=== PATIENT | male | born 1950 | race Caucasian/White ===

== ENCOUNTER 2020-01-20 09:48 | Inpatient (IN) | payer MEDICARE ==
[~2020-01-20] VITALS: Ht 162.6 cm; Wt 91.2 kg
[2020-01-20] MEDS ORDERED: SODIUM CHLORIDE 0.9% 1000ML 1,000 ML IV STA (09:49)
[2020-01-20] MEDS ORDERED: ONDANSETRON HCL INJ 2MG/ML 2ML 2 MG/ML VIAL IV STA (09:49)
--- NOTE | 2020-01-20 09:58 | NUR ---
LABS OBTAINED. DUAL VERIFICATION WITH TWO RN'S WHEN TYPE AND SCREEN DRAWN BY THIS CLINICIAN. WITNESSED BY RESTAURANT LINE COOK, MELANIA. BLOOD SENT TO LAB. WILL AWAIT RESULTS AND FURTHER ORDERS. PATIENT VERBALIZES NO PAIN OR DISTRESS. WILL CONTINUE TO MONITOR.
[2020-01-20 10:16] LABS: BASOPHILS # (AUTO) 0.1 (0.0-0.1); BASOPHILS % 0.8 % (0.0-1.0); EOSINOPHILS # (AUTO) 0.1 (0.0-0.4); EOSINOPHILS % 1.8 % (0.0-6.0); HEMATOCRIT 18.7 % (38.2-49.6); LYMPHOCYTES # (AUTO) 1.4 (1.0-3.2); LYMPHOCYTES % 23.7 % (18.0-39.1); MEAN CORPUSCULAR HEMOGLOBIN 27.6 pg (28-32); MEAN CORPUSCULAR HGB CONC 29.9 g/dL (31-35); MEAN CORPUSCULAR VOLUME 92.1 fL (81-99); MONOCYTES # (AUTO) 0.8 (0.2-0.8); MONOCYTES % 13.6 % (4.4-11.3); NEUTROPHILS # (AUTO) 3.6 (2.1-6.9); NEUTROPHILS % 59.8 % (38.7-80.0); PLATELET COUNT 151 x10e3/uL (140-360); RED BLOOD COUNT 2.03 x10e6/uL (4.3-5.7); RED CELL DISTRIBUTION WIDTH 21.2 % (11.7-14.4)
[2020-01-20 10:24] LABS: HEMOGLOBIN 5.6 g/dL (14.0-18.0)
--- NOTE | 2020-01-20 10:24 | NUR ---
RECEIVED CRITICAL LAB VALUE OF HGB 5.6 AT THIS TIME. NOTIFIED EVELYNE [place].
[2020-01-20 10:27] LABS: INR 1.47; PROTHROMBIN TIME 18.8 seconds (11.9-14.5)
[2020-01-20] MEDS ORDERED: SODIUM CHLORIDE 0.9% 250ML 250 ML IV ONE (10:30)
[2020-01-20 10:35] LABS: ALANINE AMINOTRANSFERASE 45 IU/L (0-55); ALBUMIN 3.1 g/dL (3.5-5.0); ALBUMIN/GLOBULIN RATIO 0.9 (0.8-2.0); ALKALINE PHOSPHATASE 118 IU/L (40-150); ANION GAP 10.8 mmol/L (8-16); BLOOD UREA NITROGEN 10 mg/dL (7-26); BUN/CREATININE RATIO 11 (6-25); CALCIUM 8.6 mg/dL (8.4-10.2); CARBON DIOXIDE 28 mmol/L (22-29); CHLORIDE 103 mmol/L (98-107); CREATINE KINASE 57 IU/L (30-200); CREATININE, SERUM 0.93 mg/dL (0.72-1.25); EST GLOMERULAR FILTRATION RATE > 60 ML/MIN (60-); GLUCOSE 188 mg/dL (74-118); LIPASE 60 U/L (8-78); POTASSIUM 3.8 mmol/L (3.5-5.1); SODIUM 138 mmol/L (136-145)
--- NOTE | 2020-01-20 11:38 | Diagnostic Imaging Report ---
EXAMINATION: CT of the abdomen and pelvis with contrast. TECHNIQUE: Spiral CT images of the abdomen and pelvis were performed from the lung bases to the lesser trochanters after the intravenous administration of 100 cc of Isovue 370. Coronal and sagittal reformatted images were obtained. COMPARISON: None. CLINICAL HISTORY:Abdominal distention, black stool, anemia DISCUSSION: ABDOMEN/PELVIS: LOWER THORAX:Subsegmental atelectasis in the lower lobes right greater than left. HEPATOBILIARY: Subcentimeter hypoattenuating lesion in segment 2 is too small to further characterize but likely to represent a small cyst. No additional focal hepatic lesion. Nodular hepatic contour with relative hypertrophy of the left lobe compatible with cirrhosis. The gallbladder is collapsed with multiple radiopaque calculi. SPLEEN: Borderline splenomegaly (13 cm in craniocaudal span). PANCREAS: No focal masses or ductal dilatation. ADRENALS: No adrenal nodules. KIDNEYS/URETERS: No hydronephrosis, calculi, or solid or cystic mass lesions. PELVIC ORGANS/BLADDER: The urinary bladder is unremarkable. PERITONEUM/RETROPERITONEUM: Small volume perihepatic and perisplenic ascites, tracking along the paracolic gutters and into the pelvis, average internal attenuation 0-5 Hounsfield units. No pneumoperitoneum. LYMPH NODES: No pelvic sidewall, retroperitoneal, or mesenteric lymphadenopathy. VESSELS: Atherosclerotic calcification of the abdominal aorta and major branch vessels without aneurysmal dilatation or significant stenosis. Hepatic arterial anatomy appears conventional. Portal vein, splenic vein, and central superior mesenteric vein are patent. GI TRACT: Multiple descending and sigmoid colon diverticula without wall thickening or adjacent inflammatory change. Normal appendix. No small bowel dilatation to suggest obstruction BONES AND SOFT TISSUE: No acute osseous abnormalities. Degenerative disc changes and facet arthropathy of the lumbar spine. Partially visualized median sternotomy wires. Small fat-containing left inguinal hernia. IMPRESSION: No acute intra-abdominal or pelvic CT abnormalities. Cirrhosis with portal hypertension evidenced by ascites and borderline splenomegaly. No sizable gastric or esophageal varices. Cholelithiasis. Large bowel diverticulosis without evidence of diverticulitis. Atherosclerotic vascular disease. Signed by: Dr. Sincere Noguera M.D. on 01/20/2020 11:34 AM
--- NOTE | 2020-01-20 11:41 | Diagnostic Imaging Report ---
EXAMINATION: PA and lateral views of the chest. COMPARISON: None CLINICAL HISTORY: Anemia DISCUSSION: The lungs are well-inflated. Minimal linear opacity in the lung bases compatible with subsegmental atelectasis. No consolidation, pleural effusion, or pneumothorax. Postsurgical changes of the mediastinum with multiple intact median sternotomy wires. Normal heart size without overt pulmonary edema. No acute osseous abnormalities. Posttraumatic changes of the distal right clavicle. IMPRESSION: Subsegmental atelectasis in the lung bases. Otherwise no acute cardiopulmonary abnormality. Signed by: Dr. Sincere Noguera M.D. on 01/20/2020 11:38 AM
[2020-01-20] MEDS ORDERED: SODIUM CHLORIDE 0.9% 50ML 50 ML ONE (12:44)
[2020-01-20] MEDS ORDERED: IOPAMIDOL 370 MG/ML 200 ML INFUS..BTL INJ ONE (12:44)
[2020-01-20] MEDS: ACETAMINOPHEN 325 MG TAB PO PRN ×2 (13:10→21:43)
[2020-01-20] MEDS ORDERED: ACETAMINOPHEN 325 MG TAB ONE (13:22)
[2020-01-20 14:22] VITALS: BP 156/89
[2020-01-20] MEDS ORDERED: PROPOFOL IV EMULSION 10 MG/ML 20 ML VIAL ONE (14:35)
--- NOTE | 2020-01-20 16:10 | NUR ---
bp is 85/52 automatic and 84/[address] Maza twice (@[phone] and [phone]) and sent message (@[phone]). still waiting for call back.
[2020-01-20 17:23] VITALS: BP 96/60
[2020-01-20] MEDS ORDERED: CITRATE OF MAGNESIA 300ML BOTTLE PO ONE ×2 (18:00→22:00)
[2020-01-20] MEDS ORDERED: BISACODYL 5 MG TAB EC PO ONE ×3 (19:00→23:15)
--- NOTE | 2020-01-20 19:16 | NUR ---
WALKING ROUNDS PERFORMED, RECEIVED PT LAYING SEMI FOWLERS IN BED, AAOX3, RR EVEN AND NON-LABORED, ON ROOM AIR. NO S/SX OF DISTRESS NOTED. PT RECEIVING BLOOD TRANSFUSION AT 125ML/HR. LEFT PT LAYING SEMI FOWLERS IN BED, BED IN LOW LOCKED POSITION, SIDE RAILS UPX2, CALL LIGHT AND PHONE WITHIN REACH.
[2020-01-20 20:00] VITALS: BP 98/61
[2020-01-20 21:26] VITALS: BP 98/61
[2020-01-20] MEDS ORDERED: ONDANSETRON HCL INJ 2MG/ML 2ML 2 MG/ML VIAL IV PRN (22:00)
[2020-01-20] MEDS ORDERED: LACTULOSE SYRUP 20 GM/30 ML UDC PO PRN (22:00)
[2020-01-20] MEDS ORDERED: ZOLPIDEM TARTRATE 5 MG TAB PO PRN ×2 (22:00)
[2020-01-20] MEDS ORDERED: DOCUSATE SODIUM 100 MG CAP PO PRN (22:00)
[2020-01-20 22:18] LABS: CHOL/HDL RATIO 2.9 (3.9-4.7)
[2020-01-21] VITALS (9 sets, daily range): BP systolic 93–139; BP diastolic 55–72
[2020-01-21] MEDS ORDERED: PHYTONADIONE 10 MG/ML AMP SQ ONE (00:30)
[2020-01-21] MEDS ORDERED: SODIUM CHLORIDE 0.9% 100 ML ONE (00:42)
[2020-01-21] MEDS ORDERED: FOLIC ACID 5 MG/ML VIAL IV ONE (00:53)
[2020-01-21] MEDS ORDERED: THIAMINE HCL INJ 100 MG/ML 2ML VIAL IV ONE (00:53)
[2020-01-21] MEDS ORDERED: MULTIVITAMINS IV ONE (00:55)
[2020-01-21] MEDS ORDERED: SODIUM CHLORIDE IV ONE (00:55)
[2020-01-21] MEDS ORDERED: FOLIC ACID 5 MG/ML VIAL ONE (01:24)
[2020-01-21] MEDS ORDERED: THIAMINE HCL INJ 100 MG/ML 2ML VIAL ONE (01:24)
[2020-01-21] MEDS ORDERED: MULTIVITAMINS INJECTION ONE (01:24)
[2020-01-21] MEDS ORDERED: SODIUM CHLORIDE 0.9% 1000ML 1,000 ML ONE (01:27)
[2020-01-21] MEDS: MULTIVITAMINS- 12 INJECTION 10 ML, FOLIC ACID MDV 5 MG, THIAMINE HCL INJ 100 MG in SODI... IV SCH ×2 (02:10→21:16)
[2020-01-21 02:55] LABS: CREATINE KINASE MB 1.4 ng/mL (0-5.0)
[2020-01-21 05:49] LABS: BASOPHILS % 0.3 % (0.0-1.0); EOSINOPHILS % 0.3 % (0.0-6.0); HEMATOCRIT 23.4 % (38.2-49.6); HEMOGLOBIN 7.2 g/dL (14.0-18.0); LYMPHOCYTES # (AUTO) 1.2 (1.0-3.2); LYMPHOCYTES % 14.9 % (18.0-39.1); MEAN CORPUSCULAR HEMOGLOBIN 27.9 pg (28-32); MEAN CORPUSCULAR HGB CONC 30.8 g/dL (31-35); MEAN CORPUSCULAR VOLUME 90.7 fL (81-99); MONOCYTES # (AUTO) 1.1 (0.2-0.8); MONOCYTES % 13.6 % (4.4-11.3); NEUTROPHILS # (AUTO) 5.5 (2.1-6.9); NEUTROPHILS % 70.6 % (38.7-80.0); PLATELET COUNT 115 x10e3/uL (140-360); RED BLOOD COUNT 2.58 x10e6/uL (4.3-5.7); RED CELL DISTRIBUTION WIDTH 20.1 % (11.7-14.4)
[2020-01-21 06:11] LABS: ALANINE AMINOTRANSFERASE 41 IU/L (0-55); ALBUMIN/GLOBULIN RATIO 0.9 (0.8-2.0); ALKALINE PHOSPHATASE 94 IU/L (40-150); BLOOD UREA NITROGEN 12 mg/dL (7-26); BUN/CREATININE RATIO 11 (6-25); CALCIUM 8.5 mg/dL (8.4-10.2); CARBON DIOXIDE 22 mmol/L (22-29); CHLORIDE 107 mmol/L (98-107); CREATININE, SERUM 1.09 mg/dL (0.72-1.25); EST GLOMERULAR FILTRATION RATE > 60 ML/MIN (60-); GLUCOSE 125 mg/dL (74-118); SODIUM 136 mmol/L (136-145)
[2020-01-21 06:15] LABS: CREATINE KINASE MB 1.4 ng/mL (0-5.0)
--- NOTE | 2020-01-21 06:17 | NUR ---
H&P cc: anemia HPI: 69yoM, PCP , developed ankle swelling, went to PCP, labs done showed low Hb. sent to hospital. Pt denies melena/hematochezia/blood loss. PMH: DM2, HTN, hx cigs, CAD s/p CABG x1 in 2007 PSxh; CABGx1 in 2007, right knee Allergies; see emr FH/SH; ; quit cigs meds see emr ROS: no f/c/s/N/VD/MATAMOROS/cp/sob/skin rash/back pain/vision changes/focal limb weakness v/s; revd PE nad anicteric ns1s2; 3/6 murmur soft nt nd 1+ leg edema skin dry flat affect a&ox3; faustin labs/meds revd A/P: Severe anemia- s/p transfusion; GI consult; 2 units PRBC Hypotension- bolused fluids; related to anemia Cirrhosis- f/u hepatitis panel Thrombocytopenia- due to cirrhosis Hyperglycemia- hab1c/lipids Obesity- hba1c/lipids BMI 34.5- as above Cholelithiasis- asymptomatic Diverticulosis- will need high fiber diet Peripheral edema- echo 3/6 systolic murmur- echo CAD with hx CABG- echo Prop; scd; PPI DIspo: f/u GI; Sami Maza MD, PhD.
[2020-01-21] MEDS: PANTOPRAZOLE 40 MG 10ML VIAL IV SCH ×2 (06:43→17:37)
[2020-01-21] MEDS ORDERED: SODIUM CHLORIDE 0.9% IV ONE (08:00)
[2020-01-21] MEDS ORDERED: PHYTONADIONE 10MG/ML 20 MG in SODIUM CHLORIDE 0.9% 100 ML 100 ML IV ONE (08:00)
[2020-01-21] MEDS ORDERED: PHYTONADIONE IV ONE (08:00)
--- NOTE | 2020-01-21 08:05 | NUR ---
OR nurse at bedside to take pt for EGD/colonoscopy
[2020-01-21] MEDS ORDERED: PHYTONADIONE 10MG/ML 2 ML ONE (09:06)
--- NOTE | 2020-01-21 10:59 | Operative Report ---
DATE OF PROCEDURE: 01/21/2020 SURGEON: Avel Murillo MD PROCEDURES PERFORMED: Esophagogastroduodenoscopy with banding of esophageal varices and biopsies, and colonoscopy with polypectomy. INDICATIONS FOR ESOPHAGOGASTRODUODENOSCOPY: History of hematemesis. INDICATIONS FOR COLONOSCOPY: Anemia. MEDICATIONS: The patient was done under MAC. Please see anesthesiologist's note. PROCEDURE IN DETAIL: With the patient in the left lateral decubitus position, flexible fiberoptic Olympus gastroscope was introduced into the esophagus under direct visualization without any difficulty. Grade 2-3 esophageal varices were noted without active bleeding or stigmata of recent hemorrhage. The scope was then advanced with ease into the stomach. Mucosa overlying the antrum and the body revealed some patchy erythema and low-grade edema. There was some minimal portal hypertensive gastropathy noted. The pylorus was of normal contour and shape. It was intubated with ease and the scope was advanced all the way to the second portion of the duodenum. Some focal nodularity was noted in the proximal second portion. Biopsies were obtained. The duodenal bulb appeared to be within normal limits. The scope was then withdrawn back into the stomach and retroflexed, and some small cardiac varices were noted. The scope was then straightened out and it was subsequently withdrawn. The scope was then fitted for banding, was reintroduced into the stomach, and 3 bands were applied to 2 columns of varices with excellent hemostasis. The scope was subsequently withdrawn. The patient tolerated the procedure well. IMPRESSION: 1. Grade 2-3 esophageal varices, 3 bands applied to 2 columns of varices. 2. Small cardiac varices. 3. Gastritis, biopsied, biopsies sent to stain for H pylori. Mild portal hypertensive gastropathy changes. 4. Focal nodularity, proximal second portion of duodenum, biopsied. PLAN: Follow up histology. Initiate Protonix 40 mg one p.o. q.a.m. before meals, Inderal 10 mg one p.o. b.i.d. The patient was then turned around. After adequate lubrication of the anal canal, a flexible fiberoptic Olympus colonoscope was inserted into the rectum with ease and advanced all the way to the cecum. An approximately 5 mm sessile polyp was removed per snare electrocautery from the cecum and site was hemoclipped x1. The ascending, transverse, descending, and sigmoid was grossly unremarkable other than for some mild diverticular disease in the left colon. A minute polyp was hot biopsied from the rectum. The scope was then retroflexed into the distal rectum and small internal hemorrhoids were noted, none of which was actively bleeding. The scope was then straightened out and it was subsequently withdrawn. The patient tolerated the procedure well. IMPRESSION: 1. Cecal polyp, hot snared and polypectomy site hemoclipped x1. 2. Diverticulosis. 3. Rectal polyp, hot biopsied. 4. Internal hemorrhoids, none actively bleeding. PLAN: Follow up histology. Initiate high-fiber, low-fat diet. The patient might benefit from a followup colonoscopy in 5 years. Avel Murillo MD [facility] [place] /[id number] cc: Sami Maza MD
[2020-01-21 12:03] LABS: CREATINE KINASE MB 1.2 ng/mL (0-5.0)
[2020-01-21] MEDS ORDERED: GLUCAGON FOR INJ 1 MG VIAL ONE (15:12)
[2020-01-21] MEDS ORDERED: PROPOFOL IV EMULSION 10 MG/ML 50 ML VIAL ONE (15:12)
[2020-01-21] MEDS ORDERED: MIDAZOLAM HCL 2 MG/2 ML VIAL ONE (15:20)
[2020-01-21] MEDS ORDERED: FENTANYL CITRATE/PF 100MCG/2 ML INJ ONE (15:20)
[2020-01-21] MEDS: PROPRANOLOL HCL 10 MG TAB PO SCH (17:37)
[2020-01-21] MEDS ORDERED: FUROSEMIDE 40 MG TAB PO ONE (23:15)
[2020-01-22] VITALS (12 sets, daily range): BP systolic 104–137; BP diastolic 59–75
--- NOTE | 2020-01-22 01:37 | NUR ---
SBAR RECEIVED FROM JOHNATHON Finley, PATIENT AWAKE ALERT, DENIES PAIN OR DISCOMFORT, WILL CONTINUE CARE, CONTINUE TO MONITOR
[2020-01-22 07:55] LABS: HEMATOCRIT 23.3 % (38.2-49.6); HEMOGLOBIN 7.1 g/dL (14.0-18.0)
--- NOTE | 2020-01-22 08:13 | NUR ---
Paged and notified of Hgb 7.1
--- NOTE | 2020-01-22 08:45 | NUR ---
Patient states "My fluids were stopped yesterday by due to leg swelling." Called Dr.Haddad Brothers for clarification of orders
[2020-01-22] MEDS: PROPRANOLOL HCL 10 MG TAB PO SCH ×2 (08:59→16:28)
[2020-01-22] MEDS: FUROSEMIDE 40 MG TAB PO SCH (08:59)
[2020-01-22] MEDS: PANTOPRAZOLE 40 MG 10ML VIAL IV SCH ×2 (08:59→16:27)
[2020-01-22] MEDS: SPIRONOLACTONE 25 MG TAB PO SCH (08:59)
--- NOTE | 2020-01-22 09:00 | NUR ---
Nutrition Screen Note RD Recommendation for Physician: -Continue current diet per MD. Plan of Care: RD following, monitoring for tolerance and adequacy. Education provided. Nutrition reason for involvement: (MD consult- Low Na Diet education) Primary Diagnose(s): GIB, anemia PMH: Cirrhosis Ht: 64 in Wt: 201 lb BMI: 34.5 kg/m2 IBW: [address] Assessment: (01/21) 69 YOM admitted for GIB bleed with PMH listed above. The pt was seen consuming his breakfast. He reports a good appetite, denied N/V/C/D/chewing or swallowing issues (besides a sore throat d/t his EGD procedure) and denied any food allergies. Pt was open to receiving education regarding low na diet, educated the pt on foods recommended and not recommended, meal planning, food logging, food label reading tips, grocery store tips and provided handouts. Pt had no other questions or concerns. Chart reviewed. Labs and meds reviewed. Pt had colonoscopy/EGD procedure yesterday and is now on a 2 gram na diet. POC GM: 156. Will continue to monitor. Current Diet: 2 gm Na Malnutrition Evaluation (01/21) The patient does not meet criteria for a specified degree of malnutrition at this time. Will re-evaluate at follow-up as appropriate. Diet Education Needs Assessment: Diet education indicated, pt accepted. Diet Adequacy: Meeting calorie needs, Meeting protein needs Learner(s): pt Barriers: none Cultural/Language Modifications: none Readiness: acceptance Method: discussion, handout (Low Na handout, Cirrhosis handout) Topics: educated the pt on foods recommended and not recommended, meal planning, food logging, food label reading tips, grocery store tips, portion sizes, salt free seasoning tips Understanding/Compliance: verbalized understanding., anticipate fair compliance Nutrition Care Level: low Signed: Katarina Mehta, RD, LD
[2020-01-22] MEDS ORDERED: FUROSEMIDE INJ 10 MG/ML 4 ML VIAL IV PRN (09:15)
--- NOTE | 2020-01-22 09:35 | NUR ---
ASSESSMENT: Spiritual concern Pt disappointed he isn't discharged today and concerned about his who "worries" about him. Intervention: Provided hospitality and empathic listening. Provided information on how to reach spring tester, if needed. Outcome: No need to follow at this time. RICCI GERONIMO Manager [facility] O: [phone]
[2020-01-22] MEDS ORDERED: SODIUM CHLORIDE 0.9% 250ML 250 ML IV ONE (09:45)
[2020-01-22] MEDS ORDERED: SODIUM CHLORIDE 0.9% 250ML 250 ML ONE (14:26)
--- NOTE | 2020-01-22 19:10 | NUR ---
Report given to oncoming nurse of patient's status. No s/s of acute distress noted. Call light within reach.
[2020-01-23] VITALS: BP 114/61
[2020-01-23 00:59] VITALS: BP 114/61
[2020-01-23 04:00] VITALS: BP_SYST 101; BP_SYST 89; BP_DIAS 49; BP_DIAS 55
[2020-01-23 06:38] LABS: BASOPHILS % 0.4 % (0.0-1.0); EOSINOPHILS # (AUTO) 0.1 (0.0-0.4); EOSINOPHILS % 2.8 % (0.0-6.0); HEMATOCRIT 26.4 % (38.2-49.6); HEMOGLOBIN 8.3 g/dL (14.0-18.0); LYMPHOCYTES # (AUTO) 1.5 (1.0-3.2); LYMPHOCYTES % 30.5 % (18.0-39.1); MEAN CORPUSCULAR HEMOGLOBIN 28.1 pg (28-32); MEAN CORPUSCULAR HGB CONC 31.4 g/dL (31-35); MEAN CORPUSCULAR VOLUME 89.5 fL (81-99); MONOCYTES # (AUTO) 0.7 (0.2-0.8); MONOCYTES % 14.2 % (4.4-11.3); NEUTROPHILS # (AUTO) 2.6 (2.1-6.9); NEUTROPHILS % 51.9 % (38.7-80.0); PLATELET COUNT 81 x10e3/uL (140-360); RED BLOOD COUNT 2.95 x10e6/uL (4.3-5.7); RED CELL DISTRIBUTION WIDTH 18.5 % (11.7-14.4)
[2020-01-23 06:50] LABS: INR 1.34; PROTHROMBIN TIME 17.5 seconds (11.9-14.5)
[2020-01-23 06:58] LABS: ALANINE AMINOTRANSFERASE 27 IU/L (0-55); ALBUMIN 2.7 g/dL (3.5-5.0); ALBUMIN/GLOBULIN RATIO 0.9 (0.8-2.0); ALKALINE PHOSPHATASE 84 IU/L (40-150); ANION GAP 8.6 mmol/L (8-16); BLOOD UREA NITROGEN 8 mg/dL (7-26); BUN/CREATININE RATIO 9 (6-25); CARBON DIOXIDE 30 mmol/L (22-29); CHLORIDE 103 mmol/L (98-107); CREATININE, SERUM 0.85 mg/dL (0.72-1.25); EST GLOMERULAR FILTRATION RATE > 60 ML/MIN (60-); GLUCOSE 116 mg/dL (74-118); POTASSIUM 3.6 mmol/L (3.5-5.1); SODIUM 138 mmol/L (136-145)
--- NOTE | 2020-01-23 07:04 | NUR ---
IM- Progress note O/N see below ROS: no f/c/s/N/VD/MATAMOROS/cp/sob/skin rash/back pain/vision changes/focal limb weakness v/s; revd PE nad anicteric ns1s2; 3/6 murmur soft nt nd 1+ leg edema skin dry flat affect a&ox3; faustin labs/meds revd A/P: Severe anemia- s/p transfusion; GI consult; 2 units PRBC Hypotension- bolused fluids; related to anemia Cirrhosis- f/u hepatitis panel Thrombocytopenia- due to cirrhosis Hyperglycemia- hab1c/lipids Obesity- hba1c/lipids BMI 34.5- as above Cecal polyp- removed Rectal polyp- removed Internal hemorrhoids- bowel reg Dieverticulosis - will need high fiber diet. Cholelithiasis- asymptomatic Diverticulosis- will need high fiber diet Peripheral edema- echo 3/6 systolic murmur- echo CAD with hx CABG- echo Prop; scd; PPI DIspo: f/u GI; 3-26 s/p 2 units PRBC;H/H still low; give 2 more; endoscopy showed; internal hemorrhoids, diverticulosis, cecal polys, rectal polyp; Sami Maza MD, PhD.
--- NOTE | 2020-01-23 07:05 | NUR ---
D/C summary Principal dx: Severe anemia- s/p transfusion; GI consult; 2 units PRBC Hypotension- bolused fluids; related to anemia Cirrhosis- f/u hepatitis panel Thrombocytopenia- due to cirrhosis Hyperglycemia- hab1c/lipids Obesity- hba1c/lipids BMI 34.5- as above Cecal polyp- removed Rectal polyp- removed Internal hemorrhoids- bowel reg Diverticulosis - will need high fiber diet. Cholelithiasis- asymptomatic Diverticulosis- will need high fiber diet Peripheral edema- echo 3/6 systolic murmur- echo Secondary Dx: CAD with hx CABG- echo Prop; scd; PPI DIspo: f/u GI; 3- s/p 2 units PRBC;H/H still low; give 2 more; endoscopy showed; internal hemorrhoids, diverticulosis, cecal polys, rectal polyp; d/c home f/u pcp 1 week and GI 1 week stable d/c>35mins Sami Maza MD, PhD.
[2020-01-23] MEDS ORDERED: PANTOPRAZOLE SO40 MG PO (07:07)
[2020-01-23] MEDS ORDERED: LACTULOSE20 GM/30 M PO (07:07)
[2020-01-23] MEDS ORDERED: FUROSEMIDE40 MG PO (07:07)
[2020-01-23] MEDS ORDERED: COLACE100 MG PO (07:07)
[2020-01-23 07:23] VITALS: BP 101/55
[2020-01-23 07:50] VITALS: BP 114/61
[2020-01-23] MEDS ORDERED: ONDANSETRON HCL 4 MG ORAL DISINTEGRATING TAB PO PRN (08:00)
--- NOTE | 2020-01-23 08:02 | NUR ---
Notified of Echo results
[2020-01-23 08:07] VITALS: BP 114/61
[2020-01-23] MEDS: PANTOPRAZOLE 40 MG 10ML VIAL IV SCH (08:38)
[2020-01-23] MEDS: SPIRONOLACTONE 25 MG TAB PO SCH (08:38)
[2020-01-23] MEDS: FUROSEMIDE 40 MG TAB PO SCH (08:38)
[2020-01-23] MEDS: PROPRANOLOL HCL 10 MG TAB PO SCH (08:39)
--- NOTE | 2020-01-23 10:14 | NUR ---
Right AC IV discontinued. No signs of infiltration noted. 2x2 gauze and coban placed. Refused to be taken via wheelchair to personal car. Accompanied by PCT to personal car. AAOX4 to time, person, place, situation. Respirations even and unlabored. Denies pain. Discharge instructions, rx, and all personal belongings taken with patient.
[2020-01-23] MEDS ORDERED: PANTOPRAZOLE SOD 40 MG TABEC PO SCH (16:30)
== END 2020-01-23 10:14 | disposition home or self-care (01) | DRG 432 ==
LOC: ER 09:48 → ERHOLD 10:28 → MED/SURG 12:19 → OBSVTOIN 01-21 06:18
PROVIDERS: ADMIT Internal Medicine; ATTEND Internal Medicine
PROC: 30233N1 Transfusion of Nonautologous Red Blood Cells into Peripheral Vein, Percutaneous Approach (ICD-10-PCS; 2020-01-21)
PROC: 06L38CZ Occlusion of Esophageal Vein with Extraluminal Device, Via Natural or Artificial Opening Endoscopic (ICD-10-PCS; principal; 2020-01-21 08:48)
PROC: 0DB78ZX Excision of Stomach, Pylorus, Via Natural or Artificial Opening Endoscopic, Diagnostic (ICD-10-PCS; 2020-01-21 08:48)
PROC: 0DB98ZX Excision of Duodenum, Via Natural or Artificial Opening Endoscopic, Diagnostic (ICD-10-PCS; 2020-01-21 08:48)
PROC: 0DBH8ZX Excision of Cecum, Via Natural or Artificial Opening Endoscopic, Diagnostic (ICD-10-PCS; 2020-01-21 08:48)
PROC: 0DBP8ZX Excision of Rectum, Via Natural or Artificial Opening Endoscopic, Diagnostic (ICD-10-PCS; 2020-01-21 08:48)
DX: K70.30 Alcoholic cirrhosis of liver without ascites (principal); I85.11 Secondary esophageal varices with bleeding; K76.6 Portal hypertension; D69.6 Thrombocytopenia, unspecified; E66.9 Obesity, unspecified; Z68.34 Body mass index [BMI] 34.0-34.9, adult; K80.80 Other cholelithiasis without obstruction; K57.90 Diverticulosis of intestine, part unspecified, without perforation or abscess without bleeding; I25.10 Atherosclerotic heart disease of native coronary artery without angina pectoris; Z95.1 Presence of aortocoronary bypass graft; E11.65 Type 2 diabetes mellitus with hyperglycemia; Z79.4 Long term (current) use of insulin; K63.5 Polyp of colon; D69.59 Other secondary thrombocytopenia; K62.1 Rectal polyp; I86.8 Varicose veins of other specified sites; K31.89 Other diseases of stomach and duodenum; K64.8 Other hemorrhoids
CPT/HCPCS: 36415; 43235; 43255; 45378; 45384; 45385; 71046; 74177; 80053; 80061; 82550; 82553; 82948; 83036; 83690; 83880; 84484; 85014; 85018; 85025; 85610; 86850; 86900; 86920; 88305; 88312; 93005; 93306; 97139; 99284; G0378; J1610; J1940; J2250; J3010; J3411; J3430; J7030; J7050; P9016; Q9967

== ENCOUNTER → 2023-02-13 | Outpatient (CLI) | payer MEDICARE ==
[~2023-02-13] MED LIST: COLACE100 MG PO; FUROSEMIDE40 MG PO; LACTULOSE20 GM/30 M PO; PANTOPRAZOLE SO40 MG PO
== END ==
LOC: RAD 11:45
PROVIDERS: ATTEND Internal Medicine
DX: M25.551 Pain in right hip (principal)

== ENCOUNTER → 2024-12-23 | Outpatient (REF) | payer MEDICARE | LOC: RAD 09:35 | PROVIDERS: ATTEND Internal Medicine | DX: I50.32 Chronic diastolic (congestive) heart failure (principal); R01.1 Cardiac murmur, unspecified | CPT/HCPCS: 93306 ==